=== PATIENT | female | born 1985 ===

== ENCOUNTER 2025-04-30 07:00 | Day surgery (SDC) | payer OTHER ==
[2025-04-28 13:58] LABS: BASO % 0.2 % (0.1-1.2); EOS # 0.02 (0.04-0.54); EOS % 0.2 % (0.7-7.0); LYMPH # 1.42 (1.18-3.74); LYMPH % 17.2 % (19.3-53.1); MEAN PLATELET VOLUME 10.90 fl (9.4-12.4); MONO # 0.25 (0.24-0.82); MONO % 3.0 % (4.7-12.5); NEUT # 6.53 (1.56-6.13); NEUT % 79.3 % (34.0-71.1); RED CELL DISTRIBUTION WIDTH 12.5 % (11.6-14.4)
[2025-04-28 14:12] LABS: COVID-19 AG NEGATIVE (NEGATIVE)
[2025-04-28 14:15] LABS: URINE APPEARANCE Clear; URINE BACTERIA 93.5 uL (0.0-1933); URINE BILIRRUBIN Negative (NEGATIVE); URINE BLOOD Negative; URINE COLOR Yellow; URINE GLUCOSE Negative (NEGATIVE); URINE KETONE 15 (NEGATIVE); URINE LEUKOCYTE Negative; URINE NITRATE Negative; URINE PROTEIN Negative (NEGATIVE); URINE RBC 2.6 uL (0.0-20.8); URINE UROBILINOGEN 0.2 E.U./dl
[2025-04-28 14:19] LABS: URINE CAST 0.00 uL (0.0-1.40); URINE EPITHELIAL CELLS 1.2 uL (0.0-38.8); URINE WBC 1.2 uL (0.0-23.2)
[2025-04-28 14:37] LABS: INR 1.03
[2025-04-28 15:14] LABS: ALT/SGPT 25.0 U/L (12-78); AST/SGOT 16.0 U/L (15-37); BILIRUBIN TOTAL 0.35 mg/dL (0.3-1.2); BUN CREA RATIO 18.0 (7.0-25.0); CREATININE SERUM 0.56 mg/dL (0.55-1.02); GFR 121.81; GLOBULINA 3.4 G/DL (2.4-3.5); GLUCOSE FASTING 88.0 mg/dL (65-100); OSMOLALITY SERUM 278.0 MOSM/KG (275-295)
[2025-04-30] MEDS ORDERED: METHYLENE BLUE 50MG/10ML AMP IV ONE (11:38)
[2025-04-30] MEDS ORDERED: SUGAMMADEX SODIUM 200 MG/2 ML VIAL IV ONE (12:36)
[2025-04-30] MEDS ORDERED: KETOROLAC TROMETHAMINE 60 MG VIAL IM STA (13:05)
[2025-04-30] MEDS ORDERED: ONDANSETRON HCL 2 MG/ML VIAL ONE (13:36)
[2025-04-30] MEDS ORDERED: KETOROLAC TROMETHAMINE 60 MG VIAL IM ONE (14:21)
== END 2025-04-30 16:15 | disposition home or self-care (01) ==
LOC: CIR.AMB 07:00 → U 07:00 → CIR.AMB 09:30
PROVIDERS: ATTEND Obstetrics & Gynecology Gynecology
DX: N97.1 Female infertility of tubal origin (principal)